=== PATIENT | female | born 1970 | race Caucasian/White ===

== ENCOUNTER 2020-05-25 03:07 | Emergency (ER) | payer OTHER ==
[~2020-05-25] VITALS: Ht 170.2 cm; Wt 85.0 kg
[2020-05-25] MEDS ORDERED: GABA-1181 PO (03:34)
[2020-05-25 03:50] VITALS: BP 144/76
[2020-05-25] MEDS ORDERED: IBUPROFEN 400 MG TABLET PO ONE (04:30)
== END 2020-05-25 04:25 | disposition home or self-care (01) ==
LOC: EMS 03:08
DX: L08.9 Local infection of the skin and subcutaneous tissue, unspecified (principal); F17.210 Nicotine dependence, cigarettes, uncomplicated; F12.90 Cannabis use, unspecified, uncomplicated; F15.90 Other stimulant use, unspecified, uncomplicated; Z90.710 Acquired absence of both cervix and uterus